=== PATIENT | female | born 1995 | race African-American/Black ===

== ENCOUNTER 2025-02-26 10:53 | Emergency (ER) | payer SELFPAY ==
[2025-02-26] MEDS ORDERED: predniSONE 20 MG TAB ONE (12:18)
== END 2025-02-26 12:29 | disposition home or self-care (01) ==
LOC: CSHERS 10:53
DX: J18.9 Pneumonia, unspecified organism (principal); J98.4 Other disorders of lung; I10 Essential (primary) hypertension; Z87.891 Personal history of nicotine dependence
CPT/HCPCS: 71046; 93005; J7512